=== PATIENT | male | born 1960 | race Caucasian/White ===

== ENCOUNTER → 2017-02-03 | Outpatient (CLI) | payer BC, OTHER ==
[~2017-02-03] MED LIST: EDTA; HYOSCYAMINE0.15 MG PO; IBUPROFEN 600600 M1 PO; NORCO 5-325 TA1 EACH PO; PROTONIX40 M2 PO; VALIUM2 MG PO; VICODIN 5-5001 EACH PO
== END ==
LOC: ULTRA 12:23
DX: K76.0 Fatty (change of) liver, not elsewhere classified (principal); R10.11 Right upper quadrant pain